=== PATIENT | female | born 2000 | race Two or more races ===

== ENCOUNTER 2021-02-24 04:56 | Inpatient (IN) | payer OTHER ==
[~2021-02-24] VITALS: Ht 157.5 cm; Wt 77.6 kg
[2021-02-24] MEDS ORDERED: PRENATAL TABLE1 EAC1 PO (06:38)
== END 2021-03-01 17:57 | disposition home or self-care (01) | DRG 807 ==
LOC: OBS/DEL 04:56 → LDR 22:39 → OBS/DEL 22:39 → LDR 02-25 05:29 → OB/GYN 02-28 13:44
PROVIDERS: ADMIT Obstetrics & Gynecology; ATTEND Obstetrics & Gynecology
PROC: 10E0XZZ Delivery of Products of Conception, External Approach (ICD-10-PCS; principal; 2021-02-24)
PROC: 4A1HXFZ Monitoring of Products of Conception, Cardiac Rhythm, External Approach (ICD-10-PCS; 2021-02-24)
DX: O80 Encounter for full-term uncomplicated delivery (principal); Z37.0 Single live birth; Z3A.39 39 weeks gestation of pregnancy